=== PATIENT | female | born 1995 | race Caucasian/White ===

== ENCOUNTER 2017-09-01 20:42 | Emergency (ER) | payer MEDICAID ==
[~2017-09-01] VITALS: Ht 160 cm; Wt 68.0 kg
[2017-09-01] MEDS ORDERED: KETOROLAC 60MG/2ML VIAL IM ONE (23:30)
[2017-09-01 23:39] VITALS: BP 126/84
== END 2017-09-02 00:44 | disposition home or self-care (01) ==
LOC: ER 21:14
DX: R51 Headache (principal); V49.9XXA Car occupant (driver) (passenger) injured in unspecified traffic accident, initial encounter; Y93.9 Activity, unspecified; Y92.410 Unspecified street and highway as the place of occurrence of the external cause
CPT/HCPCS: 81025; 96372; 99283; J1885

== ENCOUNTER 2019-12-07 21:21 | Emergency (ER) | payer MEDICAID ==
[~2019-12-07] VITALS: Ht 154.9 cm; Wt 75.0 kg
[2019-12-07] MEDS ORDERED: IBUPROFEN 600MG TABLET PO ONE (23:45)
[2019-12-08 00:21] VITALS: BP 125/89
== END 2019-12-08 00:21 | disposition home or self-care (01) ==
LOC: ER 21:21
DX: H66.92 Otitis media, unspecified, left ear (principal); R05 Cough; Z90.49 Acquired absence of other specified parts of digestive tract
CPT/HCPCS: 99283

== ENCOUNTER 2022-05-17 15:45 | Emergency (ER) | payer MEDICAID ==
[~2022-05-17] VITALS: Ht 165.1 cm; Wt 75.0 kg
[2022-05-17 16:29] VITALS: BP 138/84
[2022-05-17 20:04] LABS: BASOPHILS % 0.3 % (0.0-2.0); EOSINOPHILS % 1.7 % (0.0-5.0); HEMATOCRIT. 41.3 % (36.0-48.0); MEAN CORPUSCULAR HEMOGLOBIN 31.4 pg (28.0-32.0); MEAN CORPUSCULAR VOLUME 92.5 fL (81.0-99.0); MEAN PLATELET VOLUME 7.4 fl (7.4-10.4); MONOCYTES % 6.2 % (2.0-8.0); NEUTROPHILS % 44.8 % (40.0-76.0); PLATELET 291 x1000/uL (130-400); RED BLOOD CELL COUNT 4.46 mill/uL (4.2-5.4); RED CELL DISTRIBUTION WIDTH 12.9 % (11.6-14.6)
[2022-05-17 20:11] LABS: HCG SCREEN NEGATIVE
[2022-05-17 20:12] LABS: CHLORIDE 105 mEq/L (98-107)
[2022-05-17 20:14] LABS: CLARITY URINE CLEAR (CLEAR); COLOR URINE YELLOW (YELLOW); KETONES URINE NEGATIVE (NEGATIVE); LEUKOCYTE ESTERASE URINE NEGATIVE (NEGATIVE); NITRITE URINE NEGATIVE (NEGATIVE); OCCULT BLOOD URINE NEGATIVE (NEGATIVE); PROTEIN URINE NEGATIVE (NEGATIVE); SPECIFIC GRAVITY URINE 1.019 (1.005-1.030); UROBILINOGEN URINE 0.2 E.U./dL (0.2-1.0)
[2022-05-17] MEDS ORDERED: IBUP-2029 MT (21:58)
== END 2022-05-17 22:10 | disposition home or self-care (01) ==
LOC: ER 15:45
DX: R10.2 Pelvic and perineal pain (principal); Z88.3 Allergy status to other anti-infective agents; Z98.890 Other specified postprocedural states
CPT/HCPCS: 36415; 76830; 76856; 80053; 81003; 81025; 84703; 85025; 99284